=== PATIENT | male | born 1990 | race Caucasian/White ===

== ENCOUNTER 2023-07-03 09:39 | Emergency (ER) | payer MEDICARE, OTHER ==
[~2023-07-03] VITALS: Ht 175.3 cm; Wt 65.8 kg
[2023-07-03] MEDS ORDERED: HYDROCODONE/APAP 5/325MG TABLET ONE (10:11)
[2023-07-03] MEDS: HYDROCODONE/APAP 5/325MG TABLET PO ONE (10:14)
[2023-07-03] MEDS ORDERED: IBUP-1957 PO ×2 (11:52→12:35)
[2023-07-03] MEDS ORDERED: HYDR-3980 PO ×2 (11:52→12:35)
[2023-07-03 12:40] VITALS: BP 134/78; TEMP 97.6; O2SAT 100
== END 2023-07-03 12:41 | disposition home or self-care (01) ==
LOC: ER 09:39
DX: S62.336A Displaced fracture of neck of fifth metacarpal bone, right hand, initial encounter for closed fracture (principal); N18.6 End stage renal disease; Z98.890 Other specified postprocedural states; Z60.2 Problems related to living alone; W01.0XXA Fall on same level from slipping, tripping and stumbling without subsequent striking against object, initial encounter; Y93.89 Activity, other specified; Y92.89 Other specified places as the place of occurrence of the external cause; Y99.8 Other external cause status
CPT/HCPCS: 73130-TC